=== PATIENT | female | born 1990 | race Caucasian/White ===

== ENCOUNTER 2019-08-24 10:30 | Emergency (ER) | payer OTHER ==
[~2019-08-24] VITALS: Ht 149.9 cm; Wt 73.0 kg
--- NOTE | 2019-08-24 10:42 | NUR ---
Dr Anderson at the bedside for MSE.
--- NOTE | 2019-08-24 10:53 | NUR ---
Flu and Srtep swabs collected and sent to LAB.
[2019-08-24 11:53] VITALS: BP 101/69
== END 2019-08-24 11:54 | disposition home or self-care (01) ==
LOC: ER 10:30
DX: J02.9 Acute pharyngitis, unspecified (principal)
CPT/HCPCS: 36415; 84443; 86403; 87070; 87400; A4663